=== PATIENT | male | born 1950 | race Caucasian/White ===

== ENCOUNTER 2019-02-08 19:41 | Inpatient (IN) | payer MEDICARE, OTHER ==
[~2019-02-08] VITALS: Ht 182.9 cm; Wt 100.0 kg
[~2019-02-08 19:41] MED LIST: ARIP5TAB14 PO; BUPR150T6 PO; CLON2TAB12 PO; FLUO40CA PO; LEVO50TA7 PO; MODA200T35 PO; MONT10TA24 PO
[2019-02-08] MEDS ORDERED: SOD CHLORIDE 0.9% 1,000 ML IV STA (19:50)
[2019-02-08] MEDS ORDERED: SOD CHLORIDE 0.9% 1,000 ML IV SCH (21:37)
[2019-02-08] MEDS ORDERED: NACL 0.9% 3 ML SYG IV SCH (22:00)
[2019-02-08] MEDS ORDERED: DOCUSATE SODIUM 100 MG CAP PO PRN (22:00)
[2019-02-08] MEDS ORDERED: LORAZEPAM 2 MG INJ IV PRN (22:00)
[2019-02-08] MEDS ORDERED: ONDANSETRON 4 MG INJ IV PRN ×2 (22:00)
[2019-02-08] MEDS ORDERED: BISACODYL (EC) 5 MG TAB PO PRN (22:00)
[2019-02-08] MEDS ORDERED: ACETAMINOPHEN 325 MG TAB PO PRN ×2 (22:00)
[2019-02-09] VITALS: BP 139/86; PULSE 66; RESP 20
[2019-02-09 00:37] VITALS: Ht 182.9 cm; Wt 100.0 kg
[2019-02-09] MEDS ORDERED: LORAZEPAM 2 MG INJ IV PRN (01:23)
[2019-02-09 04:00] VITALS: BP 143/85; PULSE 67; RESP 20
[2019-02-09] MEDS ORDERED: LEVOTHYROXINE 50 MCG TAB PO SCH (07:00)
[2019-02-09 07:15] VITALS: BP 125/83; PULSE 60; RESP 20
[2019-02-09 11:15] VITALS: BP 113/78; PULSE 62; RESP 18
[2019-02-09] MEDS ORDERED: MONTELUKAST 10 MG TAB PO SCH (21:00)
== END 2019-02-09 15:05 | disposition home or self-care (01) | DRG 917 ==
LOC: E/R 19:41 → 6WM 21:33
PROVIDERS: ADMIT Family Medicine; ATTEND Family Medicine
DX: T42.4X1A Poisoning by benzodiazepines, accidental (unintentional), initial encounter (principal); G92 Toxic encephalopathy; Y92.019 Unspecified place in single-family (private) house as the place of occurrence of the external cause; F32.9 Major depressive disorder, single episode, unspecified; F41.9 Anxiety disorder, unspecified; E05.90 Thyrotoxicosis, unspecified without thyrotoxic crisis or storm; F39 Unspecified mood [affective] disorder
CPT/HCPCS: 36415; 70450; 71045; 80053; 80307; 81003; 82962; 83036; 83735; 84443; 84484; 85025; 85610; 85730; 93005; 97161; J7030